=== PATIENT | male | born 1990 | race Two or more races ===

== ENCOUNTER 2021-07-13 00:57 | Emergency (ER) | payer OTHER ==
[~2021-07-13] VITALS: Ht 193 cm; Wt 100.7 kg
[2021-07-13] MEDS ORDERED: DUI500 PO (04:31)
== END 2021-07-13 04:39 ==
LOC: ER 00:57
DX: S01.81XA Laceration without foreign body of other part of head, initial encounter (principal); W01.0XXA Fall on same level from slipping, tripping and stumbling without subsequent striking against object, initial encounter; Y92.9 Unspecified place or not applicable

== ENCOUNTER 2023-11-18 11:47 | Outpatient (CLI) | payer OTHER ==
[~2023-11-18 11:47] MED LIST: DUI500 PO
[2023-11-18 12:28] LABS: HEMOGLOBIN 16.1 g/dL (13-16.00); MEAN CELL VOLUME 85.8 fL (80.0-100.00); MEAN CORPUSCULAR HEMOGLOBIN 30.7 pg (27.00-32.0); MEAN CORPUSCULAR HGB CONC 35.8 g/dl (32.0-36.0); PLATELET COUNT 163 K/uL (150-450); RED BLOOD COUNT 5.25 M/uL (4.00-6.00); RED CELL DISTRIBUTION WIDTH 13.9 % (11.5-14.5)
[2023-11-18 12:55] LABS: ALBUMIN 4.2 gm/dL (3.4-5.0); BILIRUBIN TOTAL 0.79 mg/dL (0.3-1.2); CALCIUM 9.3 mg/dL (8.5-10.1); CREATININE SERUM 1.3 mg/dL (0.70-1.30); GFR 63.19; GLOBULINA 3.6 G/DL (2.4-3.5); POTASSIUM 4.03 mEq/L (3.5-5.1); TOTAL PROTEIN 7.8 gm/dL (6.4-8.2)
== END 2023-11-18 11:50 | disposition home or self-care (01) ==
LOC: LAB 11:47
PROVIDERS: ATTEND Family Medicine
DX: R10.10 Upper abdominal pain, unspecified (principal); R50.9 Fever, unspecified; D50.9 Iron deficiency anemia, unspecified; R74.01 Elevation of levels of liver transaminase levels; E86.1 Hypovolemia

== ENCOUNTER 2023-11-18 12:32 | Outpatient (CLI) | payer OTHER | END 2023-11-18 12:42 | disposition home or self-care (01) | LOC: SONOGRAMA 12:32 | PROVIDERS: ATTEND Family Medicine | DX: K86.1 Other chronic pancreatitis (principal); R10.10 Upper abdominal pain, unspecified ==